=== PATIENT | male | born 1950 | race Caucasian/White ===

== ENCOUNTER → 2019-04-29 | Outpatient (CLI) | payer OTHER ==
[~2019-04-29] VITALS: Ht 180.3 cm; Wt 74.8 kg
[~2019-04-29] MED LIST: AUGMENTIN 875875 MG PO; FISH OIL 1,0001 EAC9 PO; GLUCOSAMINE1000 MG PO; NORCO 5-325 TA1 EACH PO; OXYTROL3.9 MG/PAT TRANSDERM; VITAMIN D32000 UNIT PO
--- NOTE | 2019-04-30 16:06 | PATH ---
[facility] [place] [address] PATHOLOGY RPT PROCEDURE Name: TRISTEN ARIAS Room #: REG MARYA Miller#: [id number] Admission: 04/29/19 Date of : 50 Discharge: Report #: [id number] Path Case #: [id number] [facility] Accession Number: [id number] . 01 Material submitted: . PART A: colon - POLYP AT ASCENDING COLON. Modifiers: ascending PART B: cecum - POLYP AT CECUM . 01 Clinical history: . Pre-OP DX: Hx of polyps Post-OP DX: Colon polyps . 02 Diagnosis: A. Polyp, at ascending colon, endoscopic biopsy: - Tubular adenoma. - Negative for high-grade dysplasia. . B. Polyp, at cecum, endoscopic biopsy: - Tubular adenoma. - Negative for high-grade dysplasia. (IUV:pit 04/30/2019) QTP 04/30/2019 1323 Local . 02 Electronically signed: . Iveth Demarco MD, Pathologist NPI- [id number] . 01 Gross description: . A. Received in formalin labeled "rTisten Arias, polyp at ascending colon," is a 0.5 x 0.4 by 0.3 cm polypoid piece of tran soft tissue. The margin is inked and the tissue is sectioned perpendicular to the margin and submitted entirely in cassette A1. . B. Received in formalin labeled "Tristen Arias, polyp at cecum," is a single segment of tran soft tissue measuring 0.5 cm in maximum dimension. The specimen is entirely submitted in cassette B1. (TSD; 04/29/2019) TOB/TOB 04/29/2019 1731 Local . 02 Pathologist provided ICD-10: D12.2, D12.0 . 02 CPT . 553412, 388090 Specimen Comment: A courtesy copy of this report has been sent to [phone], [address] [place] [address] Specimen Comment: [phone] [address] PATHOLOGY RPT PROCEDURE Name: TRISTEN ARIAS Room #: REG MARYA Miller#: [id number] Admission: 04/29/19 Date of : 50 Discharge: Report #: [id number] Path Case #: [id number] Specimen Comment: Report sent to / DR MONACO Performed at: 01 [facility] [address], [place], [place] [id number] MD Rachid Stoddard MD Phone: [phone] Performed at: [address] [id number] MD Iveth Demarco MD Phone: [phone]
--- NOTE | 2019-05-06 08:07 | P ---
[facility] [place] [address] [place] [address] PROCEDURE REPORT Name: MIKAL CARVAJAL Room #: REG MARYA Miller#: [id number] Admission: 04/29/19 Attend Phys: Tanner Swanson Discharge: Date of : 50 Report #: [id number] THIS REPORT FOR: //name// CC: Tanner Mccauley DATE OF SERVICE: 04/29/2019 PROCEDURE PERFORMED: Colonoscopy with polypectomies. HISTORY OF PRESENT ILLNESS: The patient is a 68-year-old male with a history of colon polyps in 2013. He is here for routine followup. Denies any symptoms. No family history of colon cancer. DESCRIPTION OF PROCEDURE: The risks and benefits of the procedure were explained to the patient, those risks including but not limited to bleeding, perforation and the risk of sedation. He understood these risks and gave informed consent. Sedation was given using propofol per Anesthesia. Next, a digital rectal exam was initially performed, which was normal. Next, using a standard Olympus colonoscope, the scope was placed in the patient's anus and advanced under direct vision to the cecum. The overall prep was good. In the cecum, there was a 3 mm sessile polyp. This was removed with cold forceps, otherwise normal. The ileocecal valve was normal. In the ascending colon, an 8 mm sessile polyp was noted. This was removed by snare cautery, otherwise normal. The transverse and descending colon were normal. A few scattered diverticula were noted in the sigmoid colon. No evidence of inflammation, otherwise normal. The rectal mucosa was normal. On retroflexion, small nonbleeding internal hemorrhoids were noted. The scope was then withdrawn and the procedure terminated. The patient tolerated the procedure well. IMPRESSION: 1. Two small colonic polyps. 2. Sigmoid diverticulosis. 3. Internal hemorrhoids. 4. Otherwise, normal colonoscopy. RECOMMENDATIONS: 1. Await biopsy results. 2. If polyps are hyperplastic, repeat in 10 years; if adenomatous polyps, repeat in [address] [address] PROCEDURE REPORT Name: MIKAL CARVAJAL Room #: REG MARYA Miller#: [id number] Admission: 04/29/19 Attend Phys: Tanner Swanson Discharge: Date of : 50 Report #: [id number] Thank you for allowing me to participate in his care. <ELECTRONICALLY SIGNED> By: Tanner St MD 05/06/19 [id number] MD /nt
== END | disposition home or self-care (01) ==
LOC: GI 04-28 21:09
DX: Z12.11 Encounter for screening for malignant neoplasm of colon (principal); Z86.010 Personal history of colon polyps; D12.2 Benign neoplasm of ascending colon; D12.0 Benign neoplasm of cecum; K57.30 Diverticulosis of large intestine without perforation or abscess without bleeding; K64.8 Other hemorrhoids; J45.909 Unspecified asthma, uncomplicated; F17.210 Nicotine dependence, cigarettes, uncomplicated; Z98.890 Other specified postprocedural states; Z79.899 Other long term (current) drug therapy; Z90.49 Acquired absence of other specified parts of digestive tract
CPT/HCPCS: 62110; 62900